=== PATIENT | female | born 1990 | race Caucasian/White ===

== ENCOUNTER 2022-02-05 09:18 | Emergency (ER) | payer OTHER, SELFPAY ==
[2022-02-05 09:44] VITALS: BP 116/76; PULSE 81; RESP 20; TEMP 36.7; O2SAT 100
--- NOTE | 2022-02-05 10:19 | ED.URI ---
HPI - URI/Sore Throat General Chief Complaint: Upper Respiratory Infection Stated Complaint: Running Nose, Coughing Time Seen by Provider: 02/05/22 10:19 Source: patient and RN notes reviewed Mode of arrival: ambulatory Limitations: no limitations History of Present Illness HPI Narrative: 31-year-old female presents to the [facility] with complaints of cough and bilateral ear pressure for 4 to 5 days. Has been taking Tylenol, no other treatment prior to arrival. Related Data Home Medications Medication Instructions Recorded Confirmed bupropion HCl 150 mg tablet,12 hr 150 mg PO DIRECTED 02/05/22 02/05/22 sustained-release buspirone 10 mg tablet 10 mg DIRECTED 02/05/22 02/05/22 escitalopram oxalate 10 mg tablet 10 mg DIRECTED 02/05/22 02/05/22 Allergies Allergy/AdvReac Type Severity Reaction Status Date / Time fluoxetine Allergy Intermediate Verified 11/11/12 14:36 FLUOXETINE HCL Allergy Unknown HIVES Uncoded 10/18/15 17:30 Review of Systems Review of Systems: All systems reviewed & are unremarkable except as noted in HPI and below Constitutional: Constitutional: Reports no additional constitutional complaints, Denies chills and Denies fever(s) Eyes: Eyes: Reports no additional eye complaints ENT: Reports as per HPI (Bilateral ear pressure) Cardiovascular: Cardiovascular: Reports no additional cardiovascular complaints Respiratory: Respiratory: Reports as per HPI and Reports cough Gastrointestinal: Gastrointestinal: Reports no additional gastrointestinal complaints Musculoskeletal: Musculoskeletal: Reports no additional musculoskeletal complaints Integumentary/Breasts: Skin/Breast: Reports system reviewed and no additional complaints, except as docu Neurologic: Reports system reviewed and no additional complaints, except as documented Psychiatric: Psychiatric: Reports no additional psychiatric complaints Allergic/Immunologic: Allergic/Immunologic: Reports no additional allergic/immunologic complaints [facility] Past Medical History Medical History Patient denies medical problems Surgical History Surgical History (Updated 02/05/22 @ 20:28 by Pearl Polanco APRN) No pertinent past surgical history Family History Family History Mother Depression Father Patient's father is in good health, Onset Age: 42 Social History Social History Smoking status: Never smoker Alcohol intake: never Comments At the time of my signature, I reviewed and agree with the nursing past medical, surgical, social, and family history. There is no relevant family history pertinent to the patient complaint. Exam Const: General: healthy appearing, no acute distress and alert Nutritional Appearance: well nourished and obese Orientation/consciousness: patient oriented x3 Limitations: no limitations HENMT: Head: normal to inspection Ears: external ears normal and TM abnormal bulging bilateral, erythematous on the left and with fluid behind the TM on the right General nose exam: Normal external nose present Face and sinus: normal facial exam and sinuses nontender Throat: posterior oropharynx normal and uvula midline Eyes: General: appearance normal, both eyes and all related structures Pupils: Equal, round and reactive pupils present Neck: Neck: normal visual inspection, no lymphadenopathy and no meningeal signs Chest: Chest palpation & inspection: normal inspection of the chest Resp: Effort & Inspection: normal respiratory effort and no use of accessory muscles Auscultation: clear to auscultation bilaterally, no crackles, no rales, no rhonchi and no wheezes Cardio: Rate: regular rate Rhythm: regular rhythm Back/Spine/Pelvis: Cervical Spine: normal cervical lordosis Thoracic/Lumbar Spine: thoracic and lumbar spine normal to insp
== END 2022-02-05 10:59 | disposition home or self-care (01) ==
PROVIDERS: Emergency Provider Nurse Practitioner
DX: H66.92 Otitis media, unspecified, left ear (principal); F41.9 Anxiety disorder, unspecified; F32.A Depression, unspecified
CPT/HCPCS: 99213; G0463

== ENCOUNTER 2022-03-06 11:23 | Emergency (ER) | payer OTHER, SELFPAY ==
--- NOTE | ~2022-03-06 | XR_ITS ---
EXAMINATION: XR chest 2V 03/06/2022 11:53 INDICATION: Productive cough PROCEDURE: 2 view chest COMPARISON: No prior studies for comparison. FINDINGS: The lungs are clear. The cardiomediastinal silhouette is within normal limits. There are no pleural effusions. There is no pneumothorax suspected. IMPRESSION: 1: NO ACUTE CARDIOPULMONARY DISEASE. Reviewed, dictated and finalized at location B.
--- NOTE | 2022-03-06 11:24 | ED.URI ---
HPI - URI/Sore Throat General Chief Complaint: Upper Respiratory Infection Stated Complaint: Sinus,SOB,Fever Time Seen by Provider: 03/06/22 11:24 Source: patient Mode of arrival: ambulatory Limitations: no limitations History of Present Illness HPI Narrative: Lilly is a 31-year-old female patient presenting to the clinic today with complaints of sinus congestion, productive cough, chest discomfort, shortness of breath, and fever x1 day. She reports symptoms began yesterday. She has done one at home COVID test yesterday and it was negative at that time. She denies any history of asthma or COPD. She denies using tobacco or vaping. States her fever yesterday was 101F MD elicited complaint: sore throat and nasal congestion Related Data Home Medications Medication Instructions Recorded Confirmed bupropion HCl 150 mg tablet,12 hr 150 mg PO DIRECTED 02/05/22 03/06/22 sustained-release buspirone 10 mg tablet 10 mg DIRECTED 02/05/22 03/06/22 escitalopram oxalate 10 mg tablet 10 mg DIRECTED 02/05/22 03/06/22 Allergies Allergy/AdvReac Type Severity Reaction Status Date / Time No Known Allergies Allergy Verified 03/06/22 11:38 Review of Systems Review of Systems: Pertinent positives per HPI. Patient denies any rash, headache, visual changes, dizziness, chest pain, palpitations, nausea, vomiting, diarrhea, constipation, abdominal pain, or any urinary issues. [facility] Past Medical History Medical History Patient denies medical problems Surgical History Surgical History No pertinent past surgical history Family History Family History Mother Depression Father Patient's father is in good health, Onset Age: 42 Social History Social History Smoking status: Never smoker Alcohol intake: never Comments At the time of my signature, I reviewed and agree with the nursing past medical, surgical, social, and family history. There is no relevant family history pertinent to the patient complaint. Exam Narrative: General: Well-developed, obese, in no apparent distress Head: Normocephalic, atraumatic Eyes: Pupils equally round and reactive to light bilaterally, EOM intact, sclera and conjunctive clear, no discharge, lids normal Ears: TMs intact and clear, ear canals clear, no drainage, grossly hearing normal. Nose: Nares patent, clear nasal discharge, mild inflammation, no sinus tenderness. Mouth: Oral pharynx without lesions or masses, good dentition, MMM. Postnasal drip Neck: Supple, trachea midline, no enlargement of anterior or posterior cervical nodes, no thyroid masses or goiter palpable. Cardio: Regular rate and rhythm, s1 and s2 normal, no murmur appreciated. Resp: Diminished breath sounds in the lower bases otherwise clear, no rhonchi, rales, wheezing or rubs Course Course Emergency Course: Portions of this record may have been created with voice recognition software. Level of Care: Express Care Visit Vital Signs Vital signs: Vital Signs Temperature 36.9 C 03/06/22 11:30 Pulse Rate 105 H 03/06/22 11:30 Respiratory Rate 18 03/06/22 11:30 Blood Pressure 124/85 03/06/22 11:30 Pulse Oximetry 100 03/06/22 11:30 Oxygen Delivery Room Air 03/06/22 11:30 Temperature 36.9 C 03/06/22 11:30 Pulse Rate 105 H 03/06/22 11:30 Respiratory Rate 18 03/06/22 11:30 Blood Pressure 124/85 03/06/22 11:30 Pulse Oximetry 100 03/06/22 11:30 Oxygen Delivery Room Air 03/06/22 11:30 Vital signs reviewed MDM - URI/Sore Throat MDM Narrative Medical decision making narrative: At the time of visit patient is resting comfortably on the exam table. COVID PCR testing, influenza testing, and chest x-ray was performed in t
[2022-03-06 11:30] VITALS: BP 124/85; PULSE 105; RESP 18; TEMP 36.9; O2SAT 100
[2022-03-06 20:42] LABS: SARS-CoV-2 RNA PCR Negative
== END 2022-03-06 12:27 | disposition home or self-care (01) ==
PROVIDERS: Emergency Provider Nurse Practitioner Family
DX: B34.9 Viral infection, unspecified (principal); Z20.822 Contact with and (suspected) exposure to COVID-19; F41.9 Anxiety disorder, unspecified; F32.A Depression, unspecified
CPT/HCPCS: 71046; 87804; 99213; C9803; G0463; U0003; U0005

== ENCOUNTER 2022-06-06 09:16 | Emergency (ER) | payer OTHER, SELFPAY ==
--- NOTE | 2022-06-06 09:42 | ED.URI ---
HPI - URI/Sore Throat General Chief Complaint: Upper Respiratory Infection Stated Complaint: brandt/ep/fever Time Seen by Provider: 06/06/22 09:42 Source: patient Mode of arrival: ambulatory Limitations: no limitations History of Present Illness HPI Narrative: Lilly is a 31-year-old female patient presenting to the clinic today with complaints of headache, ear pain, and fever X1 day. She reports her symptoms began last night. She did not check her temperature but felt feverish. MD elicited complaint: fever and other ( headache, ear pain) Related Data Home Medications Medication Instructions Recorded Confirmed bupropion HCl 150 mg tablet,12 hr 150 mg PO DIRECTED 02/05/22 03/06/22 sustained-release buspirone 10 mg tablet 10 mg DIRECTED 02/05/22 03/06/22 escitalopram oxalate 10 mg tablet 10 mg DIRECTED 02/05/22 03/06/22 Allergies Allergy/AdvReac Type Severity Reaction Status Date / Time No Known Allergies Allergy Verified 03/06/22 11:38 Review of Systems Review of Systems: Pertinent positives per HPI. Patient denies any, rash, visual changes, dizziness, shortness of breath, chest pain, palpitations, nausea, vomiting, diarrhea, constipation, abdominal pain, or any urinary issues. PMFSH Past Medical History Medical History Patient denies medical problems Surgical History Surgical History No pertinent past surgical history Family History Family History Mother Depression Father Patient's father is in good health, Onset Age: 42 Social History Social History Smoking status: Never smoker Alcohol intake: never Comments At the time of my signature, I reviewed and agree with the nursing past medical, surgical, social, and family history. There is no relevant family history pertinent to the patient complaint. Exam Narrative: General: Well-developed, well nourished, in no apparent distress Head: Normocephalic, atraumatic Eyes: Pupils equally round and reactive to light bilaterally, EOM intact, sclera and conjunctive clear, no discharge, lids normal Ears: TMs intact and clear, ear canals clear, no drainage, grossly hearing normal. Nose: Nares patent, clear nasal discharge, no inflammation, no sinus tenderness. Mouth: Oral pharynx without lesions or masses, good dentition, MMM. Postnasal drip Neck: Supple, trachea midline, no enlargement of anterior or posterior cervical nodes, no thyroid masses or goiter palpable. Cardio: Regular rate and rhythm, s1 and s2 normal, no murmur appreciated. Resp: Clear to auscultation bilaterally, no rhonchi, rales, wheezing or rubs Course Course Emergency Course: Portions of this record may have been created with voice recognition software. Level of Care: Express Care Visit Vital Signs Vital signs: Vital Signs Temperature 36.6 C 06/06/22 09:47 Pulse Rate 101 H 06/06/22 09:47 Respiratory Rate 16 06/06/22 09:47 Blood Pressure 117/73 06/06/22 09:47 Pulse Oximetry 100 06/06/22 09:47 Oxygen Delivery Room Air 06/06/22 09:47 Temperature 36.6 C 06/06/22 09:47 Pulse Rate 101 H 06/06/22 09:47 Respiratory Rate 16 06/06/22 09:47 Blood Pressure 117/73 06/06/22 09:47 Pulse Oximetry 100 06/06/22 09:47 Oxygen Delivery Room Air 06/06/22 09:47 Vital signs reviewed MDM - URI/Sore Throat MDM Narrative Medical decision making narrative: at the time of visit patient is resting comfortably on the exam table. COVID and influenza testing were negative in the clinic today. I suspect patient has URI. Supportive measures were discussed with the patient she voiced understanding of discharge instructions Differential Diagnosis Differential diagnosis: Likely upper respiratory
[2022-06-06 09:47] VITALS: BP 117/73; PULSE 101; RESP 16; TEMP 36.6; O2SAT 100
== END 2022-06-06 10:33 | disposition home or self-care (01) ==
PROVIDERS: Emergency Provider Nurse Practitioner Family
DX: J06.9 Acute upper respiratory infection, unspecified (principal); H69.83 Other specified disorders of Eustachian tube, bilateral; Z20.822 Contact with and (suspected) exposure to COVID-19
CPT/HCPCS: 87426; 87804; 99213; C9803; G0463

== ENCOUNTER 2023-09-09 12:49 | Emergency (ER) | payer OTHER, SELFPAY ==
--- NOTE | 2023-09-09 12:53 | ED.FEMALEGU ---
HPI - Female Genitourinary General Chief complaint: Urogenital-Female Stated complaint: urinary issue Time Seen by Provider: 09/09/23 12:52 Source: patient Mode of arrival: ambulatory Limitations: no limitations History of Present Illness HPI Narrative: Lilly is a 32-year-old female patient presenting to the clinic today with complaints of possible urinary tract infection since Saturday. She reports she was having some urgency since Saturday and some burning with urination that started today. She took a [id number] [employer] testing was positive for leukocytes. Denies any fever, chills, body aches, or flank pain. Denies any chance of . Denies any chance for STIs. Denies any vaginal discharge. Last bowel movement was yesterday and normal for the patient. Related Data Home Medications Medication Instructions Recorded Confirmed bupropion HCl 150 mg tablet,12 hr 150 mg PO DIRECTED 02/05/22 09/09/23 sustained-release buspirone 10 mg tablet 10 mg DIRECTED 02/05/22 09/09/23 escitalopram oxalate 10 mg tablet 10 mg DIRECTED 02/05/22 09/09/23 Allergies Allergy/AdvReac Type Severity Reaction Status Date / Time No Known Allergies Allergy Verified 09/09/23 12:56 Review of Systems Review of Systems: Pertinent positives per HPI. Patient denies any fever, chills, rash, headache, visual changes, dizziness, cough, runny nose, sore throat, shortness of breath, chest pain, palpitations, nausea, vomiting, diarrhea, constipation, abdominal pain. PMFSH Past Medical History Medical History Patient denies medical problems Surgical History Surgical History No pertinent past surgical history Family History Family History Mother Depression Father Patient's father is in good health, Onset Age: 42 Social History Social History Smoking status: Never smoker Alcohol intake: never Comments At the time of my signature, I reviewed and agree with the nursing past medical, surgical, social, and family history. There is no relevant family history pertinent to the patient complaint. Exam Narrative: General: Well-developed, well nourished, in no apparent distress. Head: Normocephalic, atraumatic. Cardio: Regular rate and rhythm, s1 and s2 normal, no murmur appreciated. Resp: Clear to auscultation bilaterally, no rhonchi, rales, wheezing or rubs. Abdomen: Soft, pliable, bowel sounds present in all quadrants, non-tender to palpation, no organomegly, no CVAT tenderness. Course Course Emergency Course: Portions of this record may have been created with voice recognition software. Level of Care: Express Care Visit Vital Signs Vital signs: Vital signs reviewed MDM - Female Genitourinary MDM Narrative Medical decision making narrative: At the time of visit patient is resting comfortably on the exam table. Patient appears to be nontoxic. Labs: Urinalysis is negative for any sign of infection. We will send for culture since patient had a [id number] test that showed leukocytes. Plan: I suspect patient has dysuria with urinary frequency/urgency. Supportive measures were discussed with the patient and they voiced understanding discharge instructions and agrees to treatment plan. Return precautions reviewed Differential Diagnosis Differential diagnosis: Likely urinary tract infection, cystitis and other (Overactive bladder syndrome) Discharge Plan Discharge Clinical Impression: UTI symptoms Patient Disposition: Home, Self-Care Condition: Stable Instructions: Antibiotic Form, Dysuria (ED), Urinary Urgency and Frequency (DC) Additional Instructions: UA was negative for any sign of infection in the clinic today. We will send for cul
[2023-09-09 12:55] VITALS: BP 128/79; PULSE 90; RESP 16; TEMP 36.8; O2SAT 100
== END 2023-09-09 13:15 | disposition home or self-care (01) ==
PROVIDERS: Emergency Provider Nurse Practitioner Family
DX: R30.0 Dysuria (principal); R39.15 Urgency of urination
CPT/HCPCS: 81003; 87077; 87086; 87088; 99213; G0463

== ENCOUNTER 2024-03-13 09:45 | Emergency (ER) | payer OTHER, SELFPAY ==
[2024-03-13 09:55] VITALS: BP 115/72; PULSE 86; RESP 16; TEMP 36.3; O2SAT 99
[2024-03-13] MEDS: IPRATROPIUM BR 0.02% INH SOLN 0.5 MG/2.5 ML VIAL INHALATION (10:16)
[2024-03-13] MEDS: ALBUTEROL SULFATE NEB 2.5 MG/3 ML INH INHALATION (10:16)
--- NOTE | 2024-03-13 10:22 | ED.URI ---
HPI - URI/Sore Throat General Chief Complaint: Upper Respiratory Infection Stated Complaint: cough,chills,bodyaches Time Seen by Provider: 03/13/24 10:04 Source: patient and RN notes reviewed Mode of arrival: ambulatory Limitations: no limitations History of Present Illness HPI Narrative: Patient presents today with a 4 day history of productive cough, body aches, chills, nausea. Denies fever, shortness of breath. She did a home COVID test 3 days ago that was negative. She has been using a humidifier, but no other [id number] treatment prior to arrival. No history of asthma or COPD. She is a nonsmoker. Related Data Home Medications Medication Instructions Recorded Confirmed buspirone 10 mg tablet 10 mg DIRECTED 02/05/22 03/13/24 bupropion HCl 200 mg tablet,12 hr 200 mg PO DAILY 03/13/24 03/13/24 sustained-release escitalopram oxalate 20 mg tablet 20 mg PO DAILY 03/13/24 03/13/24 Allergies Allergy/AdvReac Type Severity Reaction Status Date / Time No Known Allergies Allergy Verified 03/13/24 09:46 Review of Systems Review of Systems: CONSTITUTIONAL: Denies fever, or sweats.+ body aches, EYES: Denies visual changes, redness, or discharge. ENT: Denies rhinorrhea, congestion, sore throat, or otalgia. CARDIOVASCULAR: Denies chest pain, palpitations, or edema. RESPIRATORY: Denies dyspnea.+ cough GASTROINTESTINAL: Denies abdominal pain, vomiting, or diarrhea.+ nausea GENITOURINARY: Denies dysuria or hematuria. SKIN: Denies rash, itching, or wounds. MUSCULOSKELETAL: Denies back pain, joint pain, or myalgia. NEUROLOGIC: Denies headache, numbness, tingling, or weakness. PSYCH: Denies depression or anxiety. [facility] Past Medical History Medical History Patient denies medical problems Surgical History Surgical History No pertinent past surgical history Family History Family History Mother Depression Father Patient's father is in good health, Onset Age: 42 Social History Social History Smoking status: Never smoker Alcohol intake: never Comments At time of signature, I have reviewed and agree with nursing past medical, surgical, social and family history unless otherwise noted. Please see nursing chart for further information. There is no relevant family history pertinent to the presenting complaint Exam Narrative: GENERAL: Mildly ill-appearing, well-nourished, and in no acute distress. HEAD: Normocephalic, atraumatic. EYES: EOMI. No redness or drainage. Conjunctivae normal. ENT: Mucous membranes pink and moist. Nares clear. No rhinorrhea. TMs normal bilaterally. Throat normal. Uvula midline. NECK: Normal AROM. Supple. No lymphadenopathy. CHEST: No respiratory distress. Inspiratory and expiratory wheezing throughout. HEART: Regular rate and rhythm. No murmur appreciated. EXTREMITIES: Normal range of motion. No edema. SKIN: Warm, dry, no rash. Capillary refill normal. Normal skin turgor. NEURO: No focal deficits. Alert and oriented x3. Gait steady. PSYCH: Normal affect. No signs of depression or anxiety. Course Course Emergency Course: 1050-wheezing much improved after DuoNeb. Patient states she is feeling better as well and can take a deeper breath. Level of Care: Express Care Visit Vital Signs Vital signs: Vital Signs Temperature 97.3 F L 03/13/24 09:55 Pulse Rate 86 03/13/24 09:55 Respiratory Rate 16 03/13/24 09:55 Blood Pressure 115/72 03/13/24 09:55 Pulse Oximetry 99 03/13/24 09:55 Oxygen Delivery Room Air 03/13/24 09:55 Temperature 97.3 F L 03/13/24 09:55 Pulse Rate 86 03/13/24 09:55 Respiratory Rate 16 03/13/24 09:55 Blood Pressure 115/72 03/13/24 09:55 Pulse Oximetr
== END 2024-03-13 11:03 | disposition home or self-care (01) ==
PROVIDERS: Emergency Provider Nurse Practitioner
DX: J06.9 Acute upper respiratory infection, unspecified (principal)
CPT/HCPCS: 94640; 99213; G0463

== ENCOUNTER 2024-10-28 11:13 | Emergency (ER) | payer OTHER, SELFPAY ==
[2024-10-28 11:27] VITALS: BP 108/65; PULSE 93; RESP 18; TEMP 36.2; O2SAT 98
--- NOTE | 2024-10-28 11:37 | ED_ITS ---
HPI - Animal Bite General Chief Complaint: Animal Bite Stated Complaint: cat clawed foot Time Seen by Provider: 10/28/24 11:20 Source: patient and RN notes reviewed Mode of arrival: ambulatory Limitations: no limitations History of Present Illness HPI narrative: 33-year-old female presents [facility] complaining of cat scratch to her right foot. Patient said her cat scratched her yesterday. She reports her cats vaccines are up-to-date. Patient has an indoor and outdoor cat. Patient denies being bit by the cat. Paste that today her right foot became more swollen and hurts to bear weight on her right foot due to the pain. Patient denies any fevers, chills, body aches, vision changes, or any other symptoms. Patient's tetanus is not up-to-date. Patient denies any concerns for rabies Related Data Home Medications ?Medication ?Instructions ?Recorded ?Confirmed ?Last Taken ?Type buspirone 10 mg tablet 10 mg DIRECTED 02/05/22 03/13/24 Unknown History bupropion HCl 200 mg tablet,12 hr 200 mg PO DAILY 03/13/24 10/28/24 Unknown History sustained-release escitalopram oxalate 20 mg tablet 20 mg PO DAILY 03/13/24 10/28/24 Unknown History cariprazine 3 mg capsule (Vraylar) mg 10/28/24 Unknown History Allergies Allergy/AdvReac Type Severity Reaction Status Date / Time No Known Allergies Allergy Verified 10/28/24 11:26 Review of Systems Review of Systems: CONSTITUTIONAL: Denies fever, chills, body aches, or sweats. EYES: Denies visual changes, redness, or discharge. ENT: Denies rhinorrhea, congestion, sore throat, or otalgia. CARDIOVASCULAR: Denies chest pain, palpitations, or edema. RESPIRATORY: Denies cough or dyspnea. GASTROINTESTINAL: Denies abdominal pain, nausea, vomiting, or diarrhea. GENITOURINARY: Denies dysuria or hematuria. SKIN: Denies rash or itching. Positive for wound. MUSCULOSKELETAL: Denies back pain, joint pain, or myalgia. NEUROLOGIC: Denies headache, numbness, or weakness. PSYCHIATRIC: Denies anxiety or depression. All other systems reviewed are negative, except as documented in HPI. FORMERLY [facility], [facility]–1983 Past Medical History Medical History Patient denies medical problems Surgical History Surgical History No pertinent past surgical history Family History Family History Mother Depression Father Patient's father is in good health, Onset Age: 42 Social History Social History Smoking status: Never smoker Alcohol intake: never Comments At the time of my signature, I reviewed and agree with the nursing past medical, surgical, social, and family history. There is no relevant family history pe rtinent to the patient complaint. Exam Narrative: GENERAL: This is a well-nourished, well-developed adult, in no apparent distress. They are non ill-appearing, nontoxic appearing. HEAD: normocephalic, atraumatic. EYES: Sclera clear/white. Conjunctiva normal. Vision is grossly intact. Extraocular movements intact EARS: External ears normal, auditory canals clear and without drainage, TMs normal without perforation. Hearing grossly intact. NOSE: External nose normal with no obvious nasal discharge, nasal turbinates without redness, no rhinorrhea. THROAT: Mucous membranes moist, posterior pharynx clear, without erythema or swelling. Uvula midline. NECK: Neck supple, non-tender without lymphadenopathy, masses or thyromegaly. CARDIOVASCULAR: Regular rate and rhythm RESPIRATORY: Clear to auscultation. Breath sounds equal bilaterally. No wheezes, rales, or rhonchi. SKIN: Right lower leg/foot: Multiple small scratch wounds to the anterior right lower foot near the right ankle, multiple small scratch wounds also present to the dorsal proximal surface of the right foot. Scratch wounds are scabbed over. Scratches are linear and vesicular. Right foot is edematous surrounding the scratch wounds. No surrounding cellulitis or erythema. Area of fluctuance or induration. Pedal pulse 2 +and palpable. Normal dorsiflexion plantar flexion right foot. Capillary refill less than 2 seconds. Vascular status intact distal injury. NEURO: awake, alert, and oriented to person, place and time. There were no obvious focal neurologic abnormalities. EXTREMITIES: No joint tenderness, effusion, or edema noted. BACK: Nontender without deformity. Course Course Emergency Course: Portions of this record may have been created with voice recognition software Level of Care: Express Care Visit Vital Signs Vital signs: Vital Signs Temperature 97.1 F L 10/28/24 11:27 Pulse Rate 93 10/28/24 11:27 Respiratory Rate 18 10/28/24 11:27 Blood Pressure 108/65 10/28/24 11:27 Pulse Oximetry 98 10/28/24 11:27 Oxygen Delivery Room Air 10/28/24 11:27 Temperature 97.1 F L 10/28/24 11:27 Pulse Rate 93 10/28/24 11:27 Respiratory Rate 18 10/28/24 11:27 Blood Pressure 108/65 10/28/24 11:27 Pulse Oximetry 98 10/28/24 11:27 Oxygen Delivery Room Air 10/28/24 11:27 Reviewed MDM - Animal Bite MDM Narrative Medical decision making narrative: It appears the patient's cat scratches are becoming infected. Given the surrounding edema to the wounds will cover for cat scratch disease and for cellulitis. Patient cannot take azithromycin due to interaction with her Lexapro. Will treat empirically with Bactrim and metronidazole. Patient was not bit by the cat therefore no concern for rabies prophylaxis is indicated. Patient's tetanus is dated today. Discussed physical exam findings. Advised supportive measures and signs/symptoms to go to the ER. Pt is appropriate for outpt treatment and f/u. Differential Diagnosis Differential diagnosis: Likely other (Cat scratch, cellulitis, laceration) Critical Care Time Critical Care Time Critical Care Time: No Discharge Plan Discharge Clinical Impression: Cat scratch Patient Disposition: Home Condition: Stable Instructions: Antibiotic Form, Cat Scratch Disease (ED) Additional Instructions: Take the antibiotics as directed. Your tetanus was updated today. Not drink any alcohol while taking metronidazole as it may make you has severe nausea and vomiting. Wash the wound daily with mild soap and water. Keep the wounds covered until they have healed. Follow-up with primary care provider in 3-5 days. If your symptoms worsen or you develop redness or swelling, fevers, vision problems, or any other concerns please go to the ER immediately. Patient Language: Korean Prescriptions: New sulfamethoxazole-trimethoprim [Bactrim DS] 800-160 mg tablet 1 tablet PO Q12H 7 Days Qty: 14 0RF metronidazole 500 mg tablet 500 mg PO TID 7 Days Qty: 21 0RF No Action buspirone 10 mg tablet 10 mg DIRECTED bupropion HCl 200 mg tablet sustained-release 12 hr 200 mg PO DAILY escitalopram oxalate 20 mg tablet 20 mg PO DAILY (DME) BreatheRite MDI Spacer Spacer See Rx Instructions .ROUTE .MEDSUPPLY Qty: 1 0RF Rx Instructions: As directed Vraylar 3 mg capsule Follow-up/Referrals: PHYSICIAN,MENAGERIE CARETAKER [Primary Care Provider] - Stand Alone Forms: Work/School Release IP Time of Disposition: 11:31
[2024-10-28] MEDS: TETANUS,DIPHTHERIA,AC PERTUSSIS ADULT (0.5 ML) BOOSTRIX IM (11:40)
== END 2024-10-28 11:55 | disposition home or self-care (01) ==
DX: S90.811A Abrasion, right foot, initial encounter (principal); W55.03XA Scratched by cat, initial encounter; Z23 Encounter for immunization
CPT/HCPCS: 90471; 90715; 99213; G0463